=== PATIENT | female | born 1995 | race Caucasian/White ===

== ENCOUNTER 2023-03-29 12:35 | Outpatient (CLI) | payer OTHER, SELFPAY | END 2023-03-29 12:36 | disposition home or self-care (01) | PROVIDERS: PCP Family Medicine; Visit Provider Family Medicine | DX: R21 Rash and other nonspecific skin eruption (principal); M79.673 Pain in unspecified foot; L51.9 Erythema multiforme, unspecified | CPT/HCPCS: 85025; 85651; 86140 ==

== ENCOUNTER 2023-12-04 14:54 | Outpatient (CLI) | payer OTHER, SELFPAY | END 2023-12-04 14:55 | disposition home or self-care (01) | PROVIDERS: PCP Family Medicine; Visit Provider Family Medicine | DX: Z34.91 Encounter for supervision of normal pregnancy, unspecified, first trimester (principal); Z3A.01 Less than 8 weeks gestation of pregnancy | CPT/HCPCS: 84702 ==

== ENCOUNTER 2023-12-13 13:32 | Outpatient (CLI) | payer OTHER, SELFPAY ==
--- NOTE | 2023-12-13 13:45 | CRLHL7_ITS ---
For Patients: As a result of the Cures Act, medical imaging exams and procedure reports are released immediately into your electronic medical record. You may view this report before your referring provider. If you have questions, please contact your health care provider. INDICATION: First trimester scan, establish dates. COMPARISON: None. TECHNIQUE: Real-time jett-scale imaging of the pelvis was performed. FINDINGS: Sonographic imaging demonstrates a single living intrauterine gestation. The embryo demonstrates a regular cardiac rate measuring 159 beats per minute. The embryo`s crown-rump length measurement of 1.6 cm corresponds to a gestational age of 8 weeks 0 days with a sonographic due date of 07/24/2024. There is a normal-appearing yolk sac. There are no gross abnormalities noted within the embryo at this early state of development. The gestational sac has a normal appearance. There is no evidence of a perigestational hemorrhage. The amount of fluid within the sac appears appropriate for gestational age. The cervix is closed. The myometrium appears normal. The ovaries are of normal size. Corpus luteal cyst left ovary. Trace amount of pelvic fluid noted. IMPRESSION: Single living intrauterine with sonographic gestational age 8 weeks 0 days and a sonographic due date of 07/24/2024. Dictated by Hamilton Tapia MD @ 12/15/2023 1:34:50 PM (Electronically Signed)
== END 2023-12-13 13:33 | disposition home or self-care (01) ==
LOC: US 13:33
PROVIDERS: PCP Family Medicine; Visit Provider Family Medicine
DX: Z34.91 Encounter for supervision of normal pregnancy, unspecified, first trimester (principal); Z3A.08 8 weeks gestation of pregnancy
CPT/HCPCS: 76817

== ENCOUNTER 2023-12-27 10:25 | Outpatient (CLI) | payer OTHER, SELFPAY ==
[2023-12-27 16:46] LABS: Chlamydia DNA Amplified* NOT DETECTED (No Detected); GC DNA Amplified* NOT DETECTED (No Detected)
[2023-12-30 06:25] LABS: HPV Source Cervix; HPV, High Risk by TMA Not Detected
== END 2023-12-27 10:26 | disposition home or self-care (01) ==
PROVIDERS: PCP Family Medicine; Visit Provider Registered Nurse
DX: Z34.01 Encounter for supervision of normal first pregnancy, first trimester (principal); Z67.11 Type A blood, Rh negative
CPT/HCPCS: 86592; 86703; 86704; 86706; 86762; 86787; 86803; 86850; 86900; 86901; 87086; 87340; 87491; 87591; 87624; 87625; 88141; 88142

== ENCOUNTER 2024-05-01 10:50 | Outpatient (CLI) | payer OTHER, SELFPAY | END 2024-05-01 10:51 | disposition home or self-care (01) | LOC: NFLDREF 05-03 04:19 | PROVIDERS: PCP Family Medicine; Referring Provider Family Medicine; Visit Provider Obstetrics & Gynecology | DX: Z34.93 Encounter for supervision of normal pregnancy, unspecified, third trimester (principal); Z3A.28 28 weeks gestation of pregnancy | CPT/HCPCS: 86592; 86762; 86850 ==

== ENCOUNTER 2024-06-26 10:40 | Outpatient (CLI) | payer OTHER, SELFPAY ==
[2024-06-27 12:50] LABS: Strep B DNA Probe Negative (Negative)
[2024-06-27 12:59] LABS: Strep B Susceptibility Needed? No
== END 2024-06-26 10:41 | disposition home or self-care (01) ==
LOC: NFLDREF 10:40
PROVIDERS: PCP Family Medicine; Visit Provider Obstetrics & Gynecology
DX: Z34.03 Encounter for supervision of normal first pregnancy, third trimester (principal)
CPT/HCPCS: 87081; 87653

== ENCOUNTER 2024-07-13 04:44 | Inpatient (IN) | payer OTHER, SELFPAY ==
[2024-07-13] VITALS (63 sets, daily range): BP systolic 90–148; BP diastolic 52–92; PULSE 61–118; RESP 16; TEMP 36.4–39.3; O2SAT 99–100; BMI 31.3
[2024-07-13 04:39] LABS: Amnisure Rom* POSITIVE
[2024-07-13] MEDS: OXYTOCIN 30 unit/500 ML in NS 30 UNIT/500 ML BAG IVPB (05:30)
[2024-07-13] MEDS: LACTATED RINGERS 1000 ML 1,000 ML 75 ML IV (05:31)
[2024-07-13 05:50] LABS: Basophils Absolute Auto 0.04 K/uL (0.00-0.30); Basophils Percent Auto 0.4 % (0.0-3.0); Eosinophils Percent Auto 1.9 % (0.0-7.0); Hematocrit 33.8 % (33.0-51.0); Hemoglobin* 11.7 gm/dL (12.0-16.0); Immature Granulocytes Abs Auto 0.25 K/uL (0.00-0.30); Immature Granulocytes Pct Auto 2.3 %; Lymphocytes Percent Auto 16.7 % (20-44); Mean Corpuscular HGB Conc 35 gm/dL (32-36); Mean Corpuscular Hemoglobin 30 pg (26-34); Mean Corpuscular Volume 86 fL (80-100); Monocytes Percent Auto 6.2 % (0.0-11.0); Neutrophils Percent Auto 72.5 % (42.0-72.0); Platelet Count* 247 K/uL (140-440); RDW Coefficient of Variation % 12.9 % (11.5-15.5); Red Blood Count 3.92 m/uL (4.00-5.20); White Blood Count* 10.77 K/uL (4.50-11.00)
[2024-07-13 06:06] LABS: Slide Review Reflex No
[2024-07-13] MEDS: OXYTOCIN 30 unit/500 ML in NS 30 UNIT/500 ML BAG 6 UNIT IVPB (07:02)
--- NOTE | 2024-07-13 10:34 | P.LDBA_ITS ---
Subjective History of Present Illness Date Seen: 07/13/24 Narrative: Patient is being admitted to Labor and Delivery for premature rupture of membranes at term. She is a 28 year old at 38 4/7 weeks gestation. Her full history and physical was dictated by Dr. Lim on 07/03/2024. Please see this for details. She presented to the Center with concerns about decreased movement at 3:50 a.m. At the time of admission, she stated that she had been experiencing some intermittent fluid leakage since , 07/11/2024. She initially just thought that she was experiencing some thin vaginal discharge or urinary leakage. AmniSure was positive in the Center. She denies fevers or chills, abdominal pain, or vaginal bleeding. heart rate monitoring has been reassuring since admission. Pitocin infusion was initiated following admission. Currently, infusion rate is 14 mu/min. Specific Issues/Plans G 1 P 0 Boyfriend: [] Expecting a GIRL! H&P done by Dr. Lim on 07/03/2024. #Rubella indeterminate - Can repeat antibody testing at a later date or consider vaccination . Rubella antibody testing added to 28wk labs. Repeat testing completed 05/01 and pt is immune. #Fibromyalgia, Celiac Disease/ autoimmune disorder Discussed use of cyclobenzaprine in . Limited data. No harm expected. Likely safe. Informed her that she can utilize this PRN. Recommend daily low dose aspirin Spoke with Isis Luis in Peds and she stated there is no specific age for testing, but she would only test for celiacs if the child was symptomatic. Pt griffin s been informed. # family history of Down syndrome in a cousin Completed [place] test today. Discussed limitations of [place] testing. Low risk, female. #Patient with h/o vesicoureteral reflux. Surgery to correct this as child. Strong genetic component. level 2 US: on 03/13/24 - EFW at 17th percentile, AC at the 17th percentile. Cephalic presentation. Posterior placenta, no previa greater than 2 cm from internal os. Three-vessel cord. Normal insertion site. MDP 3.6 cm. No anomalies commonly detected by ultrasound were identify in the detailed anatomy survey within the limits of ultrasound. On transabdominal imaging the cervix appeared long and closed. # Rh negative-Significant other had testing and is Rh- [facility] US from 12/01/23: EDC 07-23-24 Flu: Recommended. Declines. Covid: Recommended. Declines. TDAP: 05/15/24 RSV: N/A PHQ9/GAD7: 05/29/24 Hgb: 11.9 on 06/12/24 GBS: negative OB - Problem Based A/P Additional Plan (1) Premature rupture of membranes (PROM) affecting first : Status: Acute Delivery/Labor/Induction Plan Induction method: per pitocin protocol OB Result Labs Blood Type: A (-) negative Rubella: immune RPR/VDLR: nonreactive GBS Status: negative HBsAG: negative OB Exam Physical Exam Vital signs: Temp Pulse Resp BP 98.3 F 81 16 134/82 07/13/24 10:04 07/13/24 10:05 07/13/24 10:04 07/13/24 10:05 Narrative: General appearance: Alert, cooperative white female in no acute distress. Abdomen: Gravid, nontender. Fetus is in a vertex presentation by Mathew's. : Cervix was reportedly 1 cm dilated, 60% effaced, mid position, soft, with vertex at a -1 station per nursing at the time of admission. Detailed Labor and Delivery Exam Patient Gravid: yes Dilation (cm): 2 Effacement (%): 80 Cervix position: mid Consistency: medium Contraction Frequency: 2-3 minutes Tachysystole: No Contraction intensity: Mild Fetus (Single) Station: 0 Amniotic Membrane Status: SROM (possible small forebag noted) Amniotic Membrane Fluid Description: Clear Heart Rate Baseline: 130 Monitor Accelerations: Present Monitor Decelerations: None Senior Care Variability: Moderate (6-25)
[2024-07-13] MEDS: ONDANSETRON 2 MG/ML inj 4 MG IV ×3 (11:25→19:17)
[2024-07-13] MEDS: LIDOCAINE 2% (PF) 5 ML VIAL EPIDURAL (12:19)
[2024-07-13] MEDS: LACTATED RINGERS 1000 ML 1,000 ML 1200 ML IV ×2 (12:19→18:25)
[2024-07-13] MEDS: ROPIVACAINE 0.2 % PF 10 ML INJ 20 MG EPIDURAL (12:19)
[2024-07-13] MEDS: ROPIVACAINE 0.2% 100 ml 100 ML 12 MG EPIDURAL ×2 (12:23→20:25)
--- NOTE | 2024-07-13 12:26 | PM.ANBPRC ---
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 - Erythema multiforme, unspecified (ICD-10) Celiac disease ?K90.0 - Celiac disease (ICD-10) Family History Mother Celiac disease Maternal Grandfather Heart disease Maternal Grandmother Heart disease Uterine cancer Grandfather Diabetes Grandmother Diabetes Family/Other Down syndrome Other Bipolar disorder Thyroid disease Social History Narrative: Single, no kids, fork lift technician, nonsmoker What is your current living situation?: I presently have a place to live Problems where you live: no known problems In the past 12 months, utilities in danger of being shut off: no In past 12 months, lack of transportation kept you from medical appts, meetings, work, or getting things needed for daily living: no In the past 12 mos, have been you worried that your food would run out before you had money to buy more?: never true In the past 12 mos, the food you bought just didn't last and you didn't have money to buy more?: never true Smoking Status: Never smoker How often does anyone, including family, friends and others, physically hurt you: never How often does anyone, including family, friends and others, insult or talk down to you: never How often does anyone, including family, friends and others, threaten you with harm: never How often does anyone, including family, friends and others, scream or curse at you: never Meds Home Medications and Allergies Home Medications ?Medication ?Instructions ?Recorded ?Confirmed ?Type cyclobenzaprine 10 mg tablet 10 mg PO 3XD PRN muscle spasm #90 09/13/23 07/13/24 Rx tabs aspirin 81 mg tablet,delayed 81 mg PO QDAY 02/15/24 07/13/24 History release (Adult Low Dose Aspirin) acetaminophen 500 mg tablet 1,000 mg PO Q6H PRN 05/15/24 07/13/24 History (Tylenol Extra Strength) [id number] 400 mcg-om3 35 mg-dha 25 1 tab PO DAILY 05/29/24 07/13/24 History mg-epa 5 mg-fish oil chewable tablet ferrous sulfate 325 mg (65 mg 325 mg PO QDAY 05/29/24 07/13/24 History iron) tablet calcium carbonate (Tums) 200 mg PO BID 06/12/24 07/13/24 History magnesium 200 mg tablet 200 mg PO QDAY 06/26/24 07/13/24 History Allergies Allergy/AdvReac Type Severity Reaction Status Date / Time Sulfa (Sulfonamide Allergy Severe Anaphylaxis Verified 07/10/24 10:49 Antibiotics) gluten Allergy Intermediate Abdominal Verified 07/10/24 10:49 Pain wheat Allergy Intermediate Celiac Verified 07/10/24 10:49 Results Labs Labs: Laboratory Results - last 24 hr 07/13/24 07/13/24 04:09 05:30 WBC 10.77 RBC 3.92 L Hgb 11.7 L Hct 33.8 MCV 86 MCH 30 MCHC 35 RDW Coeff of Brooke 12.9 Plt Count 247 Neut % (Auto) 72.5 H Lymph % (Auto) 16.7 L [place] % (Auto) 6.2 Eos % (Auto) 1.9 Baso % (Auto) 0.4 Neut # (Auto) 7.80 H Lymph # (Auto) 1.80 [place] # (Auto) 0.70 Eos # (Auto) 0.20 Baso # (Auto) 0.04 Abs Immat Gran (auto) 0.25 Imm/Tot Granulo (auto) 2.3 Membrane Rupture POSITIVE Blood Type A Negative Antibody Screen NEGATIVE Vital Signs Vital Signs: Last Vital Signs Temp 98.3 F 07/13/24 11:27 Pulse 78 07/13/24 12:24 Resp 16 07/13/24 11:27 BP 119/65 07/13/24 12:24 Pulse Ox 100 07/13/24 12:23 Weight: 80.286 kg Height: 160.02 cm Anesthesia Procedures Epidural Insertion Patient Location: OB Start Time: 11:50 Stop Time: 12:26 Start Date: 07/13/24 Stop Date: 07/13/24 Reason for Block: procedure for pain Patient Position: sitting Performed By: Manty,Yonathan T Preanesthetic Checklist: IV checked, risks and benefits discussed, surgical consent, monitors and equipment checked, pre-op evaluation, timeout performed and anesthesia consent Prep: chlorhexidine gluconate Monitoring: blood pressure monitoring, continuous pulse oximetry and heart rate Approach: midline Vertebral Space: lumbar (1-5) Needle Type: Tuohy needle Injection Technique: continuous catheter Needle gauge: 17 Needle Length (cm): 10 cm Needle Insertion Depth (cm): 7 Catheter Gauge: 19 Catheter Type: multi-orifice Catheter at skin depth (cm): 13 Test Dose Result: negative and lidocaine 1.5% with epinephrine 1 to 200,000
[2024-07-13] MEDS: PHENYLEPHRINE 100 MCG/ML SYRINGE IVP ×3 (12:31→14:34)
[2024-07-13] MEDS: LACTATED RINGERS 500 ML 500 ML 125 ML IV (14:40)
--- NOTE | 2024-07-13 14:55 | PM.OBPNL ---
Subjective Date Seen: 07/13/24 Narrative: Patient is comfortable following epidural. Objective Vital Signs: Last Vital Signs Temp 98.2 F 07/13/24 14:11 Pulse 100 07/13/24 14:49 Resp 16 07/13/24 14:11 BP 118/64 07/13/24 14:49 Pulse Ox 99 07/13/24 12:28 Pelvic Exam Dilation (cm): 10 Effacement (%): 100 Station: +2 Contractions Monitor mode: External Contraction Frequency: 2-3 minutes Contraction intensity: Strong/Firm Pitocin Rate (mU/min): 18 Assessment Assessment: active labor Station: +2 Amniotic Membrane Status: SROM Heart Rate Baseline: 130 Long-Term Variability: Moderate (6-25) Monitor Accelerations: Present Monitor Decelerations: None Plan Plan: Will make preparations to begin pushing.
--- NOTE | 2024-07-13 16:28 | P.OBPN_ITS ---
Subjective Date Seen: 07/13/24 Narrative: Pushing with contractions. Feels more nauseous when positioned on her left side. Objective Exam: Can see separation of labia, crescent of head with pushing. Vital Signs: Last Vital Signs Temp 98 F 07/13/24 16:19 Pulse 84 07/13/24 16:19 Resp 16 07/13/24 16:19 BP 114/53 L 07/13/24 16:19 Pulse Ox 99 07/13/24 12:28 Pelvic Exam Dilation (cm): 10 Effacement (%): 100 Station: +2 Comments: ROP position of vertex Contractions Monitor mode: External Contraction intensity: Strong/Firm Pitocin Rate (mU/min): 18 Assessment Station: +2 Amniotic Membrane Status: SROM Status: Category ll Heart Rate Baseline: 140 Skilled Nursing Variability: Moderate (6-25) Monitor Accelerations: Present Monitor Decelerations: Early Plan Plan: Maternal repositioning in hands knees to help with rotation.
[2024-07-13] MEDS: LACTATED RINGERS 1000 ML 1,000 ML 725 ML IV (19:56)
[2024-07-13 20:16] LABS: Mean Corpuscular HGB Conc 34 gm/dL (32-36); Mean Corpuscular Hemoglobin 30 pg (26-34)
[2024-07-13 20:23] LABS: Slide Review Reflex No
[2024-07-13 20:31] LABS: Alanine Aminotransferase* 27 U/L (4-35); Aspartate Amino Transferase* 35 U/L (12-35); Blood Urea Nitrogen* 11 mg/dL (5-24); Creatinine* 0.8 mg/dL (0.5-1.5); Est. Creatinine Clearance* 85.06; Estimated Glomerular Filt Rate 102 ml/min
[2024-07-13] MEDS: AMPICILLIN 2 GM in 0.9 % SODIUM CHLORIDE Mini-bag 100 ML IVPB (20:38)
[2024-07-13 20:44] LABS: Hematocrit 34.2 % (33.0-51.0); Hemoglobin* 11.5 gm/dL (12.0-16.0); Red Blood Count 3.89 m/uL (4.00-5.20); White Blood Count* 18.08 K/uL (4.50-11.00)
[2024-07-13 20:45] LABS: Mean Corpuscular Volume 88 fL (80-100); Platelet Count* 237 K/uL (140-440)
[2024-07-13 20:48] LABS: Basophils Percent Auto 0.1 % (0.0-3.0); Eosinophils Percent Auto 0.1 % (0.0-7.0); Hematocrit 34.1 % (33.0-51.0); Hemoglobin* 11.5 gm/dL (12.0-16.0); Immature Granulocytes Pct Auto 1.4 %; Lymphocytes Percent Auto 4.4 % (20-44); Mean Corpuscular HGB Conc 34 gm/dL (32-36); Mean Corpuscular Hemoglobin 30 pg (26-34); Mean Corpuscular Volume 88 fL (80-100); Monocytes Percent Auto 2.4 % (0.0-11.0); Neutrophils Percent Auto 91.6 % (42.0-72.0); Platelet Count* 229 K/uL (140-440); Red Blood Count 3.89 m/uL (4.00-5.20); White Blood Count* 17.93 K/uL (4.50-11.00)
[2024-07-13 20:50] LABS: Slide Review Reflex No
[2024-07-13] MEDS: GENTAMICIN 325 MG in 0.9 % SODIUM CHLORIDE 100 ml 100 ML 108.13 MG IVPB (21:11)
--- NOTE | 2024-07-13 21:17 | W.PM.VAGDE_ITS ---
OB Procedure Vag Delivery Mother Details Mother Details: The patient is a 28 year-old, 1, Para 0, admitted on 07/13/24 at 38 4/7 weeks gestation following premature rupture of membranes at term. : 1 Para: 0 Weeks Gestation: 38.4 Admission Date: 07/13/24 Additional Details Amniotic Membrane Status: SROM Amniotic Membrane Rupture Date: 07/10/24 Amniotic Membrane Rupture Time: 18:00 Amniotic Membrane Fluid Description: Clear Analgesia/Anesthesia Type: Epidural Waterbirth: No Pitcoin: Yes Intrapartal Events: Labor Induction Induction Method: per misoprostol protocol Labor Onset: 11:30 (on 07/13/2024) Complete: 14:41 Pushin:00 (Stopped pushing at 1718 for approximately 90 minutes for a [place] circuit to affect rotation from asynclitic ROP.) Heart: heart tones during second stage were initially 140 baseline, category 1, and at times category 2. During the final hour of pushing, FHR baseline increased gradually to 170s-180 baseline with variable decelerations. 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 Ampicillin and Gentamicin IV ordered per protocol just prior to delivery (Ampicillin finished just at time of delivery of , Gentamicin administered just prior to placenta delivery). delivered via spontaneous vaginal delivery. Infant was placed on maternal abdomen.? Cord was clamped and cut after a 30-60 second delay. Nose and mouth were bulb suctioned.? Infant weight pending. 1 Minute Interval Total Score: 8 5 Minute Interval Total Score: 8 Additional Details Shoulder Dystocia: No Placenta Delivery Time: 20:48 Placental Delivery Description: Spontaneous Delivery repair: Chromic Blood Loss: 200 Laceration: Vaginal - 2nd Degree (and right labial) Episiotomy Description: None Blood Loss Measurement Type: QBL Bakri Used: No Sponge/Need Count Correct: Yes Cord Vessel Description: 3 Vessels Event Summary Status: Mother and were stable after delivery. Disposition: floor
[2024-07-13] MEDS: IBUPROFEN 600 MG TABLET PO (23:05)
[2024-07-14 02:07] VITALS: BP 116/72; PULSE 80; RESP 16; TEMP 36.7; O2SAT 97
[2024-07-14] MEDS: ACETAMINOPHEN 500 MG TABLET 1000 MG PO ×4 (03:00→22:17)
[2024-07-14] MEDS: IBUPROFEN 600 MG TABLET PO ×3 (05:43→19:40)
[2024-07-14 06:37] VITALS: BP 106/69; PULSE 82; RESP 15; TEMP 36.8; O2SAT 97
[2024-07-14 07:03] LABS: Hemoglobin* 10.5 gm/dL (12.0-16.0)
[2024-07-14] MEDS: DOCUSATE SODIUM 100 MG CAPSULE PO (09:33)
--- NOTE | 2024-07-14 10:10 | PM.ANPOST ---
Post Anesthesia Note Post Anesthesia Note Patient seen: Inpatient Respiratory Status: adequate Cardiovascular Status: adequate Mental Status: baseline Pain: adequate Temp: baseline Anesthetic awareness: N/A Complications: none Follow care: none
[2024-07-14 10:15] VITALS: BP 109/67; PULSE 80; RESP 16; TEMP 36.4; O2SAT 98
--- NOTE | 2024-07-14 10:43 | PM.OBPNVD1 ---
OB - PN:Subj Subjective Time Seen by Provider: 10:30 Date Seen: 07/14/24 Patient comments OB post-: no complaints, perineal pain (mild) and tolerating diet [place] infant status: and doing well Narrative: The patient is doing well this morning. She denies fevers, chills, nausea vomiting, or excessive bleeding. She is having a little bit of perineal pain and some mild cramping. Her is also reportedly doing well. OB - PN: Obj Exam Physical Exam: Vital signs: Temp Pulse Resp BP Pulse Ox O2 Del Method 97.6 F 80 16 109/67 98 Room Air 07/14/24 10:15 07/14/24 10:15 07/14/24 10:15 07/14/24 10:15 07/14/24 10:15 07/14/24 10:15 Narrative: T-max 102.7? at 2102 on 07/13/2024. Constitutional: Constitutional: no acute distress Routine Neck Exam: Neck: Present normal inspection Routine Respiratory Exam: Respiratory: Present CTA bilaterally; Absent respiratory distress Routine Cardiovascular Exam: Cardiovascular: Present RRR; Absent murmur Routine Abdominal Exam: Abdominal: Present soft; Absent tenderness Fundus: Present firm Routine Extremities Exam: Extremities: Present normal inspection and pedal edema; Absent calf tenderness Routine Neurological Exam: Neurological: Present alert and oriented X3 Routine Psychiatric Exam: Psychiatric: Present normal affect OB - PN: Obj Data Labs Labs: Laboratory Results - last 24 hr 07/13/24 07/13/24 07/14/24 20:07 20:23 06:40 WBC 18.08 H 17.93 H RBC 3.89 L 3.89 L Hgb 11.5 L 11.5 L 10.5 L Hct 34.2 34.1 MCV 88 88 MCH 30 30 MCHC 34 34 RDW Coeff of Brooke 13.0 Plt Count 237 229 Neut % (Auto) 91.6 H Lymph % (Auto) 4.4 L [place] % (Auto) 2.4 Eos % (Auto) 0.1 Baso % (Auto) 0.1 Neut # (Auto) 16.40 H Lymph # (Auto) 0.80 L [place] # (Auto) 0.40 Eos # (Auto) 0.00 Baso # (Auto) 0.00 Abs Immat Gran (auto) 0.30 Imm/Tot Granulo (auto) 1.4 BUN 11 Creatinine 0.8 Estimated Creat Clear 85.06 Estimated GFR 102 AST 35 ALT 27 OB - PN: A/P Delivery Assessment and Plan (1) Chorioamnionitis, delivered, current hospitalization: Status: Acute (2) Prolonged rupture of membranes, greater than 24 hours, delivered, current hospitalization: Status: Acute (3) Status post delivery at term: Status: Acute Plan day: 1 Plan: routine care
[2024-07-14 13:20] VITALS: BP 101/59; PULSE 87; RESP 16; TEMP 36.6; O2SAT 96
[2024-07-14 14:54] LABS: Rapid Plasma Reagin (RPR) Non Reactive (Non Reactive)
[2024-07-14 16:10] VITALS: BP 101/65; PULSE 88; RESP 16; TEMP 36.5; O2SAT 97
[2024-07-14 19:58] VITALS: BP 117/72; PULSE 89; RESP 16; TEMP 36.9; O2SAT 98
[2024-07-15] MEDS: IBUPROFEN 600 MG TABLET PO ×3 (01:02→14:05)
[2024-07-15] MEDS: ACETAMINOPHEN 500 MG TABLET 1000 MG PO ×3 (04:34→17:16)
[2024-07-15 04:35] VITALS: BP 113/74; PULSE 77; RESP 16; TEMP 36.8; O2SAT 96
[2024-07-15 07:56] VITALS: BP 114/75; PULSE 87; RESP 18; TEMP 36.5; O2SAT 97
[2024-07-15] MEDS: DOCUSATE SODIUM 100 MG CAPSULE PO (08:10)
--- NOTE | 2024-07-15 08:29 | PM.OBDSVD1 ---
DS: Providers Provider Date Seen: 07/15/24 Date of admission: 07/13/24 04:44 Primary care physician: Hamilton Temple MD Admitting Clinician: Faina Brower MD Attending Physician on discharge: Kathy Lim MD Date of Discharge: 07/15/24 DS: Diagnosis Discharge Diagnosis (1) Status post delivery at term: Status: Acute (2) Prolonged rupture of membranes, greater than 24 hours, delivered, current hospitalization: Status: Acute (3) Premature rupture of membranes (PROM) affecting first : Status: Acute (4) Chorioamnionitis, delivered, current hospitalization: Status: Acute Exam Const: Vital Signs, click to edit/add: Vital Signs - 24 hr 07/14/24 10:15 07/14/24 13:20 07/14/24 16:10 Temperature 97.6 F 97.8 F 97.7 F Pulse Rate [Pulse Oximeter] 80 87 88 Respiratory Rate 16 16 16 Blood Pressure [Le ft Arm] 109/67 101/59 L 101/65 Pulse Oximetry 98 96 97 Oxygen Delivery Me thod Room Air Room Air Room Air 07/14/24 19:58 07/15/24 04:35 07/15/24 07:56 Temperature 98.4 F 98.3 F 97.7 F Pulse Rate [Pulse Oximeter] 89 77 87 Respiratory Rate 16 16 18 Blood Pressure [Le ft Arm] 117/72 113/74 114/75 Pulse Oximetry 98 96 97 Oxygen Delivery Me thod Room Air Room Air Room Air Documenting provider has reviewed patient's vital signs: yes Common normals: no apparent distress, oriented x3 and alert General appearance: cooperative and comfortable Resp: Common normals: normal respiratory effort Cardio: Common normals: regular rate Rate: regular rate GI: Common normals: soft to palpation Palpation: soft : Uterus: U/2 Lochia: small Uterus palpation: uterus nontender Extremity: Common normals: normal to inspection, no calf tenderness and no pedal edema Neuro: Common normals: oriented x3 Sensorium/orientation: alert OB - DS: Summary Hospital Course Hospital Course: The patient is a 28 year old G 1 now P 1001 that was admitted to the Center on 07/13/24 for premature rupture of membranes at 38 4/7 weeks gestation. Membranes likely had been ruptured for more than 48 hours at the time of admission. She had a vaginal delivery complicated by chorioamnionitis diagnosed in the second stage. She delivered a viable female infant. She is breast feeding. the patient has done well. Peripartum Data Infant delivery method: Vaginal Laceration description: Perineal - 2nd Degree (And right labial) Episiotomy description: None complications: none [place] Gender: Female Infant Discharge Plan: Home (Pending results of cultures this evening) Infant A Gender: Female Status at Discharge Functional status at discharge: independent ambulation Overall status at discharge: patient is back to baseline Time Spent with Patient Time attestation: Total time spent providing and/or coordinating discharge services: Discharge Plan Discharge Disposition: Home, Self-Care Date of Admission: 07/13/24 04:44 Attending Provider on Discharge: Kathy Lim Primary Care Provider: Hamilton Temple Condition: Stable Anticipated Discharge Date/Time: 07/15/24 08:35 Discharge Medications: New docusate sodium 100 mg Capsule 100 mg PO DAILY Qty: 30 0RF ibuprofen 600 mg Tablet 600 mg PO Q6H PRNQty: 30 0RF Continued [id number] oil 400 mcg-35 mg -25 mg-5 mg tablet,chewable 1 tab PO DAILY ferrous sulfate 325 mg (65 mg iron) tablet 325 mg PO QDAY calcium carbonate [Tums] 200 mg calcium (500 mg) tablet,chewable 200 mg PO BID cyclobenzaprine 10 mg tablet 10 mg PO 3XD PRN (Reason: muscle spasm) Qty: 90 1RF Patient Comments: pt reports only taking once or twice during acetaminophen [Tylenol Extra Strength] 500 mg tablet 1,000 mg PO Q6H PRN magnesium 200 mg tablet 200 mg PO QDAY Discontinued aspirin [Adult Low Dose Aspirin] 81 mg tablet,delayed release (DR/EC) 81 mg PO QDAY Discharge Orders: Discharge Order (Routine); Ordered 07/15/24 Ordered By: Kathy Lim Patient Education: OB [place] [facility], OB Over the Counter Medication Information, OB Vaginal/Breast Feeding Activity Level: No Restrictions Activity Detail: Nothing in the vagina for 6 weeks Discharge Diet: Regular Follow Up Appointments: Hamilton Temple MD [Primary Care Provider, Family Practice] Forms: MyHealth Info Instructions DS:Data Additional Comments Additional comments: hemoglobin 10.5
[2024-07-15 16:18] VITALS: BP 116/82; PULSE 81; RESP 16; TEMP 36.7; O2SAT 96
== END 2024-07-15 19:25 | disposition home or self-care (01) | DRG 805 ==
LOC: OB OUT 04:44 → OB 04:44
PROVIDERS: Obstetrics & Gynecology; Admitting Provider Obstetrics & Gynecology; PCP Family Medicine; Visit Provider Obstetrics & Gynecology
DX: O42.12 Full-term premature rupture of membranes, onset of labor more than 24 hours following rupture (principal); O41.1230 Chorioamnionitis, third trimester, not applicable or unspecified; Z37.0 Single live birth; O70.1 Second degree perineal laceration during delivery; O36.8130 Decreased fetal movements, third trimester, not applicable or unspecified; M79.7 Fibromyalgia; K90.0 Celiac disease; Z79.899 Other long term (current) drug therapy; Z82.79 Family history of other congenital malformations, deformations and chromosomal abnormalities; Z3A.38 38 weeks gestation of pregnancy
CPT/HCPCS: 01967; 36415; 82565; 84112; 84450; 84460; 84520; 85018; 85025; 85027; 86592; 86850; 86900; 86901; 88307; A9270; J0290; J1580; J2405; J2795; J7120

== ENCOUNTER 2024-07-17 13:00 | Outpatient (CLI) | payer OTHER, SELFPAY ==
--- NOTE | 2024-07-17 16:31 | W.PM.LAC.MC ---
Consult Note - Mom Date of Visit Date of visit: 07/17/24 Reason for consultation: Assistance Needed (use of nipple shield) Visit Code: Visit Patient's Information Phone number: [phone] : 1 Para: 1 Allergies Sulfa (Sulfonamide Antibiotics) Allergy (Severe, Verified 07/10/24 10:49) Anaphylaxis gluten Allergy (Intermediate, Verified 07/10/24 10:49) Abdominal Pain wheat Allergy (Intermediate, Verified 07/10/24 10:49) Celiac Mother's Medical History: Medical History (Updated 07/14/24 @ 10:46 by Kathy Lim MD) Vesicoureteral reflux ?N13.70 - Vesicoureteral-reflux, unspecified (ICD-10) Fibromyalgia ?M79.7 - Fibromyalgia (ICD-10) 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 - Erythema multiforme, unspecified (ICD-10) Celiac disease ?K90.0 - Celiac disease (ICD-10) Work Plans: return to work mid-September 2024 Delivery Information Gestational Age: 38+4 Gestational Weight For Age: AGA Weight: 2.915 kg Discharge Weight: 2.796 kg Percentage weight loss: 4.1 Baby's Information Baby's Age at Visit: 4 days Baby's Provider or Clinic: [facility] Jaundice: No Past Experience Past Experience: No Current Frequency of Day Feedings: every 2-3 hours, waking baby for most feedings Frequency of Night Feedings: same Both Breasts: No (usually just nurses on one side right now) Suck: strong Latch: deep, comfortable, need nipple shield to have baby latch Length of Time: 20 min on 1 side Goals: probably 1 year, still deciding Pumping Pumping: Yes Quantity Pumped: has pumped 3x in last 24 hrs, gets 2 oz Supplementing EBM Supplement: No Formula Supplement: No Baby Elimination Number of Wet Diapers a Day: 4 in last 24 hrs Number of BM a Day: 4 in last 24 hrs; brown in color Breast/Nipple Condition Breast Information: Breasts are symmetrical with rounded lower quadrants, intramammary distance is less than 1.5 inches. No erythema. Nipples are supple, everted prior to feeding. Breast Shape: Round Engorgement: Yes Interventions for Engorgement: Warm Pack, Hand Expressing Breast Milk and Pumping Maternal Nipple Condition - Left: Short Maternal Nipple Condition - Right: Short Sore Nipples: Yes (mild) Interventions for Sore Nipples: Lansinoh/Nipple Cream Baby Assessment Skin: Normal Tongue/frenulum: Normal/elastic Palate: Average Lips: Relaxed and Symmetrical Jaw Alignment: Symmetrical Mucosa: Angelica, moist Onsite Observation Pre-Feed weight: 2.72 kg Assessments/Interventions Assessments/Interventions: Did not observe a session. Maday had eaten just prior to our appointment. Parents did not know I would be able to watch a feeding and help with latch; focused on mom's use of nipple shield, tips to try and wean off it's use, pumping routine to maintain supply now and when she returns to work, measured mom for flange size. RIGHT side 20mm, LEFT side 19-20mm; discussed flange size of 22-24mm as well as nipple shield size; if 24mm is uncomfortable, try 21mm for shield size Discussed trying to latch without shield, if not successful, can also try pumping before bringing to the breast to draw out nipple and start letdown or offering 2nd breast without shield when baby is slightly satisfied Education provided: Early feeding cues to maximize timing of latching, Asymmetric latch technique for wide/deep latch to increase milk, Transfer for baby and increase comfort for mom, Supply/demand nature of milk supply, Need for frequent stimulation/milk removal, Alternative feeding methods (SNS, cup, finger feeding, bottling) (discussed adding bottles at 3-4 weeks of age), Use of nipple shield, Pumping for milk management (discussed not overpumping to prevent oversupply as body regulates amount of milk needed) and Milk collection, storage Handouts Provided: Milk storage Follow-Up Suggested follow up: Appointment as needed (especially if would like to try and get baby latched without shield use) Time Spent Time spent with patient (min): 60 (reviewing EMR and face to face with patient, partner and ) Meds Home Medications and Allergies Home Medications ?Medication ?Instructions ?Recorded ?Confirmed ?Type cyclobenzaprine 10 mg tablet 10 mg PO 3XD PRN muscle spasm #90 09/13/23 07/13/24 Rx tabs acetaminophen 500 mg tablet 1,000 mg PO Q6H PRN 05/15/24 07/13/24 History (Tylenol Extra Strength) [id number] 400 mcg-om3 35 mg-dha 25 1 tab PO DAILY 05/29/24 07/13/24 History mg-epa 5 mg-fish oil chewable tablet ferrous sulfate 325 mg (65 mg 325 mg PO QDAY 05/29/24 07/13/24 History iron) tablet calcium carbonate (Tums) 200 mg PO BID 06/12/24 07/13/24 History magnesium 200 mg tablet 200 mg PO QDAY 06/26/24 07/13/24 History docusate sodium 100 mg capsule 100 mg PO DAILY #30 caps 07/15/24 Rx ibuprofen 600 mg tablet 600 mg PO Q6H PRN #30 tabs 07/15/24 Rx Allergies Allergy/AdvReac Type Severity Reaction Status Date / Time Sulfa (Sulfonamide Allergy Severe Anaphylaxis Verified 07/10/24 10:49 Antibiotics) gluten Allergy Intermediate Abdominal Verified 07/10/24 10:49 Pain wheat Allergy Intermediate Celiac Verified 07/10/24 10:49
== END 2024-07-17 13:01 | disposition home or self-care (01) ==
PROVIDERS: PCP Family Medicine; Visit Provider Obstetrics & Gynecology
DX: Z39.1 Encounter for care and examination of lactating mother (principal)
CPT/HCPCS: G0463

== ENCOUNTER 2024-07-20 08:55 | Outpatient (CLI) | payer OTHER, SELFPAY | END 2024-07-20 08:56 | disposition home or self-care (01) | LOC: NFLDREF 07-24 02:20 | PROVIDERS: PCP Family Medicine; Referring Provider Family Medicine; Visit Provider Nurse Practitioner Family | DX: R30.0 Dysuria (principal) | CPT/HCPCS: 87086 ==